=== PATIENT | male | born 1965 | race Caucasian/White ===

== ENCOUNTER 2024-04-11 20:02 | Inpatient (IN) | payer BC ==
[~2024-04-11] VITALS: Ht 162.6 cm; Wt 85.8 kg
[2024-04-11 20:06] VITALS: BP_SYST 129; PULSE 96; RESP 21; TEMP 97.3; O2SAT 98
[2024-04-11] MEDS: MAG-AL HYDROX/SIMETH 30 ML UDC PO ONE (20:49)
[2024-04-11 20:55] LABS: BASOPHILS # (AUTO) 0.1 K/uL (0.0-0.2); EOSINOPHILS # (AUTO) 0.1 K/uL (0.0-0.4); HEMOGLOBIN 13.8 g/dL (14.0-18.0); MEAN CORPUSCULAR HEMOGLOBIN 32 pg (27-31); MONOCYTES # (AUTO) 0.8 K/uL (0.0-1.0); RED CELL DISTRIBUTION WIDTH 13.4 % (9.0-15.0)
[2024-04-11 21:00] LABS: BASOPHILS % (AUTO) 1.2 % (0.0-2.0); EOSINOPHILS % (AUTO) 1.3 % (0.0-4.0); HEMATOCRIT 40.2 % (36-54); LYMPHOCYTES # (AUTO) 2.7 K/uL (1.0-5.5); LYMPHOCYTES % (AUTO) 26.3 % (20.5-51.5); MEAN CORPUSCULAR HGB CONC 34 % (32-36); MEAN CORPUSCULAR VOLUME 93 fL (79.0-98.0); MONOCYTES % (AUTO) 7.8 % (1.7-9.3); NEUTROPHILS # (AUTO) 6.4 K/uL (1.8-7.7); NEUTROPHILS % (AUTO) 63.4 % (40.0-70.0); PLATELET COUNT (AUTO) 177 K/uL (130-430); RED BLOOD CELL COUNT(AUTO) 4.34 MIL/uL (4.2-6.2); WHITE BLOOD COUNT (AUTO) 10.2 K/uL (4.8-10.8)
[2024-04-11 21:01] LABS: ALANINE AMINOTRANSFERASE 153 U/L (12-78); ALBUMIN 3.6 g/dL (3.4-4.8); ANION GAP 10 (5-15); ASPARTATE AMINOTRANSFERASE 119 U/L (10-37); CALCIUM 8.5 mg/dL (8.4-11.0); CARBON DIOXIDE 25 mmol/L (23-29); CHLORIDE 107 mmol/L (98-107); CREATININE 1.06 mg/dL (0.55-1.30); GFR AFRICAN AMERICAN 92 mL/min (>90); GFR NON AFRICAN-AMERICAN 76 mL/min (>90); GLUCOSE 94 mg/dL (74-106); POTASSIUM 4.1 mmol/L (3.5-5.1); SODIUM SERUM 142 mmol/L (136-145); TOTAL BILIRUBIN 0.9 mg/dL (0.0-1.0); TOTAL PROTEIN, SERUM 6.7 g/dL (6.4-8.3); UREA NITROGEN, BLOOD 22 mg/dL (8-21)
[2024-04-11 21:15] LABS: BILIRUBIN,DIRECT 0.2 mg/dL (0.0-0.3); LIPASE 38 U/L (16-77)
[2024-04-11] MEDS: ASPIRIN 81 MG TAB.CHEW PO ONE (21:28)
[2024-04-11] MEDS ORDERED: FUROSEMIDE 40 MG/4 ML VIAL IVP ONE (21:30)
[2024-04-11] MEDS: FUROSEMIDE 20 MG/2 ML VIAL IVP ONE (21:31)
[2024-04-11] MEDS ORDERED: SPIR25TA6 PO (23:04)
[2024-04-11] MEDS ORDERED: FURO40TA5 PO (23:04)
[2024-04-11] MEDS ORDERED: CARV12.548 PO (23:04)
[2024-04-11] MEDS ORDERED: ASPI-1393 PO (23:04)
[2024-04-11 23:45] LABS: BARBITURATE, URINE NEGATIVE (NEG <=200); BENZODIAZEPINE, URINE NEGATIVE (NEG <=150); METHAMPHETAMINES SCREEN,URINE NEGATIVE (NEG <=500); URINE AMPHETAMINE NEGATIVE (NEG <=500); URINE METHADONE NEGATIVE (NEG <=200)
[2024-04-11 23:46] LABS: CANNABINOID, URINE NEGATIVE (NEG <=50); COCAINE, URINE NEGATIVE (NEG <=150); OPIATE, URINE NEGATIVE (NEG <=100); PHENCYCLIDINE SCREEN,URINE NEGATIVE (NEG <=25); UR TRICYCLIC ANTIDEPRESSANTS NEGATIVE (NEG <=300); URINE OXYCODONE SCREEN NEGATIVE (NEG <=100)
[2024-04-12 08:55] VITALS: BP_SYST 107; PULSE 86; RESP 16; TEMP 96.8; O2SAT 98
[2024-04-12] MEDS ORDERED: ONDANSETRON HCL 4 MG/2 ML VIAL IVP PRN (10:30)
[2024-04-12] MEDS ORDERED: LORazepam 2 MG/ML VIAL IVP PRN (10:30)
[2024-04-12] MEDS ORDERED: ACETAMINOPHEN 325 MG TABLET PO PRN (10:30)
[2024-04-12] MEDS ORDERED: HYDROcodone/ACETAMIN 5-325 MG TAB (NORCO/ VICODIN) PO PRN ×2 (10:30→19:45)
[2024-04-12] MEDS ORDERED: HYDROcodone/ACETAMIN 10-325 MG TAB PO PRN (10:30)
[2024-04-12] MEDS ORDERED: NALOXONE HCL 0.4 MG/ML AMP (NARCAN) IVP PRN ×4 (10:30→19:45)
[2024-04-12 11:10] LABS: BASOPHILS # (AUTO) 0.1 K/uL (0.0-0.2); BASOPHILS % (AUTO) 1.3 % (0.0-2.0); EOSINOPHILS # (AUTO) 0.1 K/uL (0.0-0.4); EOSINOPHILS % (AUTO) 1.3 % (0.0-4.0); HEMATOCRIT 39.9 % (36-54); HEMOGLOBIN 13.5 g/dL (14.0-18.0); LYMPHOCYTES # (AUTO) 2.4 K/uL (1.0-5.5); LYMPHOCYTES % (AUTO) 29.7 % (20.5-51.5); MEAN CORPUSCULAR HEMOGLOBIN 31 pg (27-31); MEAN CORPUSCULAR HGB CONC 34 % (32-36); MEAN CORPUSCULAR VOLUME 92 fL (79.0-98.0); MONOCYTES # (AUTO) 0.7 K/uL (0.0-1.0); MONOCYTES % (AUTO) 8.8 % (1.7-9.3); NEUTROPHILS # (AUTO) 4.7 K/uL (1.8-7.7); NEUTROPHILS % (AUTO) 58.9 % (40.0-70.0); PLATELET COUNT (AUTO) 169 K/uL (130-430); RED BLOOD CELL COUNT(AUTO) 4.32 MIL/uL (4.2-6.2); RED CELL DISTRIBUTION WIDTH 13.7 % (9.0-15.0); WHITE BLOOD COUNT (AUTO) 7.9 K/uL (4.8-10.8)
[2024-04-12 11:20] LABS: ALBUMIN 3.4 g/dL (3.4-4.8); CALCIUM 8.4 mg/dL (8.4-11.0); CREATININE 0.95 mg/dL (0.55-1.30); POTASSIUM 3.8 mmol/L (3.5-5.1); TOTAL BILIRUBIN 1.5 mg/dL (0.0-1.0); TOTAL PROTEIN, SERUM 6.5 g/dL (6.4-8.3)
[2024-04-12 11:53] VITALS: O2SAT 98
[2024-04-12] MEDS: ASPIRIN 81 MG TABLET(ECOTRIN) PO ONE (15:59)
[2024-04-12] MEDS: SPIRONOLACTONE 25 MG TABLET (ALDACTONE) PO ONE (15:59)
[2024-04-12] MEDS: NORMAL SALINE 5 ML DISP.SYRIN IVF SCH (16:00)
[2024-04-12 20:00] VITALS: BP_SYST 135; PULSE 92; RESP 20; TEMP 98.5; O2SAT 95
[2024-04-12] MEDS: HYDROcodone/ACETAMIN 10-325 MG TAB PO PRN (21:08)
[2024-04-12] MEDS: CARVEDILOL 12.5 MG TABLET (COREG) PO SCH (21:12)
[2024-04-13 01:00] VITALS: BP_SYST 139; PULSE 88; RESP 20; TEMP 96.5; O2SAT 95
[2024-04-13 06:49] LABS: BASOPHILS # (AUTO) 0.1 K/uL (0.0-0.2); BASOPHILS % (AUTO) 1.3 % (0.0-2.0); EOSINOPHILS # (AUTO) 0.1 K/uL (0.0-0.4); EOSINOPHILS % (AUTO) 1.8 % (0.0-4.0); HEMATOCRIT 41.3 % (36-54); HEMOGLOBIN 13.7 g/dL (14.0-18.0); LYMPHOCYTES # (AUTO) 2.3 K/uL (1.0-5.5); LYMPHOCYTES % (AUTO) 33.5 % (20.5-51.5); MEAN CORPUSCULAR HEMOGLOBIN 31 pg (27-31); MEAN CORPUSCULAR HGB CONC 33 % (32-36); MEAN CORPUSCULAR VOLUME 94 fL (79.0-98.0); MONOCYTES # (AUTO) 0.5 K/uL (0.0-1.0); MONOCYTES % (AUTO) 7.3 % (1.7-9.3); NEUTROPHILS # (AUTO) 3.9 K/uL (1.8-7.7); NEUTROPHILS % (AUTO) 56.1 % (40.0-70.0); PLATELET COUNT (AUTO) 176 K/uL (130-430); RED BLOOD CELL COUNT(AUTO) 4.41 MIL/uL (4.2-6.2); RED CELL DISTRIBUTION WIDTH 13.4 % (9.0-15.0); WHITE BLOOD COUNT (AUTO) 6.9 K/uL (4.8-10.8)
[2024-04-13 07:29] LABS: ALBUMIN 3.4 g/dL (3.4-4.8); CALCIUM 8.6 mg/dL (8.4-11.0); POTASSIUM 4.4 mmol/L (3.5-5.1); TOTAL BILIRUBIN 1.7 mg/dL (0.0-1.0); TOTAL PROTEIN, SERUM 6.5 g/dL (6.4-8.3)
[2024-04-13 07:32] LABS: TOTAL IRON BIND. CAPACITY 341 ug/dL (250-450)
[2024-04-13 09:06] VITALS: BP_SYST 109; PULSE 91; RESP 12; TEMP 96; O2SAT 98
[2024-04-13] MEDS: FUROSEMIDE 40 MG TABLET PO ONE (13:29)
[2024-04-13] MEDS: ASPIRIN 81 MG TABLET(ECOTRIN) PO SCH (13:29)
[2024-04-13] MEDS: SPIRONOLACTONE 25 MG TABLET (ALDACTONE) PO SCH (13:31)
[2024-04-13] MEDS: FUROSEMIDE 40 MG TABLET PO SCH (13:33)
[2024-04-13 17:29] VITALS: BP_SYST 110; PULSE 74; RESP 16; TEMP 98; O2SAT 98
[2024-04-15 01:06] LABS: GAMMA GLUTAMYL TRANSFERASE 129 IU/L (0-65)
[2024-04-15 02:06] LABS: ALPHA-1-ANTITRYPSIN, S 117 mg/dL (101-187); HEPATITIS A AB, IgM Negative (Negative); HEPATITIS B CORE AB, IgM Negative (Negative); HEPATITIS B SURFACE AG Negative (Negative); HEPATITIS C VIRUS AB Non Reactive (Non Reactive)
[2024-04-15 14:07] LABS: ANTI-SMOOTH MUSCLE AB 6 Units (0-19)
[2024-04-16 13:07] LABS: ATYPICAL pANCA <1:20 titer (Neg:<1:20); CYTOPLASMIC (C-ANCA) <1:20 titer (Neg:<1:20); CYTOPLASMIC (P-ANCA) <1:20 titer (Neg:<1:20)
== END 2024-04-13 18:20 | disposition home or self-care (01) | DRG 194 ==
LOC: SED 20:02 → STU 22:51
PROVIDERS: ADMIT Preventive Medicine Preventive Medicine/Occupational Environmental Medicine; ATTEND Preventive Medicine Preventive Medicine/Occupational Environmental Medicine
DX: I50.41 Acute combined systolic (congestive) and diastolic (congestive) heart failure (principal); I24.89 Other forms of acute ischemic heart disease; I42.9 Cardiomyopathy, unspecified; R10.13 Epigastric pain; K76.1 Chronic passive congestion of liver; I25.10 Atherosclerotic heart disease of native coronary artery without angina pectoris; K82.4 Cholesterolosis of gallbladder; Z95.810 Presence of automatic (implantable) cardiac defibrillator; Z79.899 Other long term (current) drug therapy; Z79.82 Long term (current) use of aspirin
CPT/HCPCS: 36415; 71045; 76700; 80048; 80053; 80074; 80076; 80307; 82103; 82607; 83516; 83540; 83550; 83690; 83880; 84484; 85025; 86256; 93005; 93306; 99285; G0378; J1940

== ENCOUNTER 2024-05-08 13:28 | Inpatient (IN) | payer BC ==
[~2024-05-08] VITALS: Ht 165.1 cm; Wt 84.4 kg
[~2024-05-08 13:28] MED LIST: ASPI-1393 PO; CARV12.548 PO; FURO40TA5 PO; SPIR25TA6 PO
[2024-05-08 13:49] VITALS: BP_SYST 95; PULSE 98; RESP 18; TEMP 98.1; O2SAT 98
--- NOTE | 2024-05-08 13:58 | NUR ---
Patient triaged and placed in waiting room. VSS and patient appears in no acute distress at this time. Accompanied by SELF, awaiting available bed, and MD notified of need for MSE.
--- NOTE | 2024-05-08 14:40 | NUR ---
CHENCHO Bush at bedside examining patient.
--- NOTE | 2024-05-08 14:45 | NUR ---
PT BIBS, PT C/C UPPER 10/10 ABD PAIN x1 MONTH, NAUSEA, DENIES VOMIT AND DIARRHEA. ALSO REPORTS COUGH X1 MONTH. PMH DEFIBRILAOR, CHF, HTN. NKA. VSS.
--- NOTE | 2024-05-08 14:55 | NUR ---
Placed in room 03 . Placed on electronic device monitor, blood pressure machine and pulse oximeter. To gown for exam. Side rails up. Report given to SUE PLATA.
[2024-05-08 15:01] LABS: BILIRUBIN,URINE NEGATIVE (NEGATIVE); BLOOD, URINE NEGATIVE (NEGATIVE); CLARITY/URINE CLEAR (CLEAR); COLOR,URINE YELLOW (YELLOW); GLUCOSE,URINE NEGATIVE (NEGATIVE); KETONES,URINE NEGATIVE (NEGATIVE); LEUKOCYTE ESTERASE ,URINE NEGATIVE (NEGATIVE); NITRITE, URINE NEGATIVE (NEGATIVE); PROTEIN URINE 1+ (NEGATIVE)
[2024-05-08 15:12] LABS: BACTERIA,URINE None Seen /HPF (None Seen); HYALINE CASTS, URINE 0-2 /LPF (None Seen); RBC,URINE 0-3 /HPF (0-3); WBC,URINE NONE SEEN /HPF (0-3)
[2024-05-08 15:26] LABS: BASOPHILS # (AUTO) 0.1 K/uL (0.0-0.2); BASOPHILS % (AUTO) 0.9 % (0.0-2.0); EOSINOPHILS % (AUTO) 0.5 % (0.0-4.0); HEMATOCRIT 41.6 % (36-54); HEMOGLOBIN 14.2 g/dL (14.0-18.0); LYMPHOCYTES # (AUTO) 2.2 K/uL (1.0-5.5); LYMPHOCYTES % (AUTO) 24.7 % (20.5-51.5); MEAN CORPUSCULAR HEMOGLOBIN 31 pg (27-31); MEAN CORPUSCULAR HGB CONC 34 % (32-36); MEAN CORPUSCULAR VOLUME 92 fL (79.0-98.0); MONOCYTES # (AUTO) 0.7 K/uL (0.0-1.0); MONOCYTES % (AUTO) 7.6 % (1.7-9.3); NEUTROPHILS # (AUTO) 5.9 K/uL (1.8-7.7); NEUTROPHILS % (AUTO) 66.3 % (40.0-70.0); PLATELET COUNT (AUTO) 145 K/uL (130-430); RED BLOOD CELL COUNT(AUTO) 4.53 MIL/uL (4.2-6.2); RED CELL DISTRIBUTION WIDTH 13.3 % (9.0-15.0); WHITE BLOOD COUNT (AUTO) 8.9 K/uL (4.8-10.8)
[2024-05-08] MEDS: DICYCLOMINE HCL 10 MG/5 ML SOLUTION PO ONE (15:40)
[2024-05-08] MEDS: MAG-AL HYDROX/SIMETH 30 ML UDC PO ONE (15:41)
[2024-05-08] MEDS: PANTOPRAZOLE SODIUM 40 MG TAB PO ONE (15:41)
[2024-05-08 15:51] LABS: ALBUMIN 3.4 g/dL (3.4-4.8); BILIRUBIN,DIRECT 0.2 mg/dL (0.0-0.3); CALCIUM 8.7 mg/dL (8.4-11.0); CREATININE 1.14 mg/dL (0.55-1.30); POTASSIUM 5.1 mmol/L (3.5-5.1); TOTAL BILIRUBIN 1.3 mg/dL (0.0-1.0); TOTAL PROTEIN, SERUM 6.9 g/dL (6.4-8.3)
--- NOTE | 2024-05-08 17:23 | NUR ---
ASSOCIATE TEACHER AT BEDSIDE
[2024-05-08] MEDS: ENOXAPARIN SODIUM 80 MG/0.8 ML SYRINGE SUBCUT ONE (17:58)
[2024-05-08] MEDS: ASPIRIN 81 MG TABLET(ECOTRIN) PO ONE (17:58)
--- NOTE | 2024-05-08 17:59 | NUR ---
# 22 gauge angiocath placed to R hand. Use of asceptic technique. Opsite placed over site. Blood return noted. Blood for lab drawn from site. Flushed with 10 cc of normal saline. No evidence of infiltration noted. Patient tolerated well.
[2024-05-08] MEDS: ONDANSETRON HCL 4 MG/2 ML VIAL IVP ONE (18:15)
[2024-05-08] MEDS: MORPHINE 4 MG INJ. 4 MG/ML VIAL IVP ONE (18:16)
--- NOTE | 2024-05-08 19:10 | NUR ---
Received report from ALESHIA Partida. Received patient on bed #2, with angio cath #22 on left hand, patent and intact with no IVF infusing at this time. Patient is AAOX4, respiratory even and unlabored, denies any pain or discomfort at this time.
--- NOTE | 2024-05-08 20:23 | NUR ---
Note undone in ED - 05/08/24 at 2055 by [email or web address] Admit bed requested Patient will be admitted to care of Dr. KIMBROUGH. Admitted to TELE unit. Diagnosis ELEVATED TROPONIN, ABD PAIN, CYSTITIS Inpatient (Yes or No) YES Observation (Yes or No) NO Orientation concerns or request close to nursing station (Yes or No) NO Covid Status NA On vent or bipap NO Isolation requirements NO Needs a sitter NO From Home (Yes or if No enter name of facility) HOME Requires Dialysis (Yes or No) NO Med Rec Completed (Yes of No) YES
[2024-05-08] MEDS: D5/0.45 NS 1,000 ML IV ONE (20:49)
--- NOTE | 2024-05-08 20:55 | NUR ---
Admit bed requested Patient will be admitted to care of Dr. KIMBROUGH. Admitted to TELE unit. Diagnosis ELEVATED TROPONIN, ABD PAIN, CHOLECYSTITIS Inpatient (Yes or No) YES Observation (Yes or No) NO Orientation concerns or request close to nursing station (Yes or No) NO Covid Status NA On vent or bipap NO Isolation requirements NO Needs a sitter NO From Home (Yes or if No enter name of facility) HOME Requires Dialysis (Yes or No) NO Med Rec Completed (Yes of No) YES
--- NOTE | 2024-05-08 21:30 | NUR ---
Patient will be admitted to care of Dr. Smiley. Admitted to Tele unit. Will go to room 118A. Belongings list completed. Complete and up to date summary report printed. SBAR report to be given at bedside with opportunity for questions.
--- NOTE | 2024-05-08 21:40 | NUR ---
ADMISSION NOTES RECEIVED REPORT FROM ER NURSE MINNA, PATIENT ARRIVED VIA JUSTINE HERNANDEZ. PT CAME WITH COMPLAINTS OF EPIGASTRIC PAIN ON AND OFF FOR A MONTH. PT AMBULATORY AND ON TELEMETRY. EDUCATED WITH THE CALL LIGHT, AND ROOM. ON IVF INFUSING ORDERED AT R HAND, PATENT AND INTACT. BED LOCKED AND LOWEST POSITION.
[2024-05-08 21:53] VITALS: BP_SYST 124; PULSE 72; RESP 18; TEMP 97.9; O2SAT 97
--- NOTE | 2024-05-09 00:07 | NUR ---
PT RESTING IN BED, BREATHING EVEN AND UNLABORED. VITALS TAKEN AND DOCUMENTED. PT NOT IN DISTRESS. INSTRUCTED PATIENT ON NPO FOR POSSIBLE SURGERY. CALL LIGHT WITHIN REACH.
[2024-05-09 00:16] VITALS: BP_SYST 129; PULSE 79; RESP 19; TEMP 98.2
--- NOTE | 2024-05-09 02:28 | NUR ---
RIGHT HAND IV INFILTRATED, IV LINE PULLED OUT. RE INSERTED NEW IV ACCESS G. 22 AT RFA. BENIGN AND PATENT.
--- NOTE | 2024-05-09 04:50 | NUR ---
CONSULTATION PAGED/CALLED Reason for Consultation: CARDIAC CLEARANCE Person Who was Notified: DR LUIS E Mcmullen VIA TEXT Consulting Physician: DR LUIS E Mcmullen Animal Geneticist Specialty: CARDIOLOGY Ordering Physician: DR LUIS E Hernandez
--- NOTE | 2024-05-09 06:32 | NUR ---
CLOSING NOTES PT AWAKE. BREATHING EVEN AND UNLABORED.NOT IN DISTRESS. PT ON NPO FOR HIDA SCAN AND FOR SURGERY. AMBULATORY. CALL LIGHT WITHIN REACH. A/OX4.BED LOCKED IN LOWEST POSITION. ALL NEEDS MET THROUGHOUT SHIFT. WILL ENDORSE TO MORNING NURSE FOR CONTINUITY OF CARE.
[2024-05-09 08:00] VITALS: BP_SYST 117; PULSE 85; RESP 18; TEMP 96; O2SAT 100; O2SAT 99
--- NOTE | 2024-05-09 08:00 | NUR ---
opening pt lying in bed, no distress noted, resperations even unlabored, pt educated elevator constructor supervisor light system and fall precautions, iv site intact, call light with in reach.
--- NOTE | 2024-05-09 10:00 | NUR ---
ACTIVITY PT AMBULATING IN ROOM,GAIT STEADY, MINIMAL ASSIT NEEDED, NO SOB NO C/O DISTRESS
[2024-05-09] MEDS ORDERED: MORPHINE 4 MG INJ. 4 MG/ML VIAL IVP PRN (10:30)
[2024-05-09] MEDS: D5/0.45 NS 1,000 ML IV SCH (10:30)
[2024-05-09] MEDS ORDERED: LORazepam 2 MG/ML VIAL IVP PRN (10:30)
[2024-05-09] MEDS ORDERED: NALOXONE HCL 0.4 MG/ML AMP (NARCAN) IVP PRN (10:30)
[2024-05-09] MEDS ORDERED: ONDANSETRON HCL 4 MG/2 ML VIAL IVP PRN (10:30)
[2024-05-09 10:37] LABS: BASOPHILS % (AUTO) 0.7 % (0.0-2.0); EOSINOPHILS # (AUTO) 0.1 K/uL (0.0-0.4); EOSINOPHILS % (AUTO) 1.2 % (0.0-4.0); HEMATOCRIT 43.6 % (36-54); HEMOGLOBIN 14.7 g/dL (14.0-18.0); LYMPHOCYTES # (AUTO) 2.5 K/uL (1.0-5.5); MEAN CORPUSCULAR HEMOGLOBIN 31 pg (27-31); MEAN CORPUSCULAR HGB CONC 34 % (32-36); MEAN CORPUSCULAR VOLUME 93 fL (79.0-98.0); MONOCYTES # (AUTO) 0.5 K/uL (0.0-1.0); NEUTROPHILS # (AUTO) 3.4 K/uL (1.8-7.7); NEUTROPHILS % (AUTO) 52.1 % (40.0-70.0); PLATELET COUNT (AUTO) 153 K/uL (130-430); RED CELL DISTRIBUTION WIDTH 13.5 % (9.0-15.0); WHITE BLOOD COUNT (AUTO) 6.5 K/uL (4.8-10.8)
[2024-05-09 10:43] LABS: ALBUMIN 3.4 g/dL (3.4-4.8); CALCIUM 8.4 mg/dL (8.4-11.0); CREATININE 1.18 mg/dL (0.55-1.30); POTASSIUM 4.4 mmol/L (3.5-5.1); TOTAL BILIRUBIN 1.3 mg/dL (0.0-1.0); TOTAL PROTEIN, SERUM 6.9 g/dL (6.4-8.3)
[2024-05-09 12:34] VITALS: BP_SYST 107; PULSE 87; RESP 18; TEMP 97.7; O2SAT 97
--- NOTE | 2024-05-09 14:40 | NUR ---
PT TAKEN VIA WHEELCHAIR FOR HIDA SCAN
--- NOTE | 2024-05-09 15:30 | NUR ---
PT RETURNED FROM HIDA SCAN, NO DISTRESS, PT RETURNED TO BED, O2 SAT 98% ON RA BP 128/72
[2024-05-09 18:28] VITALS: BP_SYST 125; PULSE 87; RESP 19; TEMP 98.4; O2SAT 98
--- NOTE | 2024-05-09 19:01 | NUR ---
CLOSING PT SITTING UP IN BED NO C/9O DISCOMFORT, IV SITE INTACT, CARE ENDORSED TO SUCTION WORKER, BED IN LOWEST POSITION, CALL LIGHT WITH IN REACH.
--- NOTE | 2024-05-09 19:30 | NUR ---
PICKED UP CALL FROM DR. DEJESUS REGARDING LAP CHOLI SURGERY. PT HAD HIDA SCAN TODAY RESULTS WERE RELAYED TO DR. DEJESUS. DR WOULD LIKE PT DISCHARGED AND FOLLOW UP WITH HIM AT HIS OFFICE ON SUNDAY. PT STATES HE DOES NOT WANT TO BE DISCHARGED HE FEELS HE WOULD END UP IN AN EMERGENCY SITUATION, STATES OCCASIONALLY HIS PAIN INCREASES TO AN 8/10. THIS WAS ENDORSED TO OIL PIPELINE DISPATCHER BRANDIE. WHO WILL FOLLOW UP WITH DR. DEJESUS AND DR. KIMBROUGH.
[2024-05-09 20:00] VITALS: BP_SYST 112; PULSE 87; RESP 18; TEMP 97.9; O2SAT 98
[2024-05-09] MEDS: MORPHINE 2 MG/ML INJ. SYRINGE IVP PRN (20:35)
--- NOTE | 2024-05-09 21:40 | NUR ---
OPENING NOTE PATIENT RESTING IN BED, AOX4, UNLABORED BREATHING, PAIN LEVEL IS 6/10. RECEIVED A REPORT FROM DAY NURSE REGARDING DR. DEJESUS'S PLAN TO DISCHARGE THE PATIENT WITH A FOLLOW-UP ON SUNDAY. PATIENT REFUSES DISCHARGE DUE TO PAIN MANAGEMENT CONCERNS. PAGED DR. KIMBROUGH AND REPORTED IT. DR. KIMBROUGH ORDERED GI CONSULT FOR PATIENT'S DIET FROM DR. CHIN. Addendum: 05/09/24 at 2211 by Alyson Stewart RN WRONG OPENING NOTE TIME. CORRECTION: 05/09/241939
--- NOTE | 2024-05-09 23:02 | NUR ---
REPORTED TROPONIN LEVEL TO DR. KIMBROUGH Y, 202 FROM 207 ON 05/[address] KIMBROUGH STATES IT IS OK. Addendum: 05/09/24 at 2310 by Alyson Stewart RN LELE, CHARGE NURSE, RECEIVED RESULT FROM LAB. SHE CONVEYED THE RESULT TO ME.
[2024-05-10] VITALS: BP_SYST 113; PULSE 85; RESP 18; TEMP 97.7; O2SAT 98
--- NOTE | 2024-05-10 05:47 | NUR ---
CONSULTATION PAGED/CALLED Reason for Consultation: OR FOLLOW UP ABD PAIN Person Who was Notified: MELISSA Consulting Physician: ZULLY METEOROLOGY TEACHER Community Engagement Specialist Specialty: GASTROENTEROLOGY Ordering Physician: Mary KIMBROUGH
[2024-05-10 06:34] LABS: BASOPHILS % (AUTO) 0.8 % (0.0-2.0); EOSINOPHILS # (AUTO) 0.1 K/uL (0.0-0.4); EOSINOPHILS % (AUTO) 1.8 % (0.0-4.0); HEMATOCRIT 41.8 % (36-54); HEMOGLOBIN 13.8 g/dL (14.0-18.0); LYMPHOCYTES # (AUTO) 2.1 K/uL (1.0-5.5); LYMPHOCYTES % (AUTO) 35.5 % (20.5-51.5); MEAN CORPUSCULAR HEMOGLOBIN 31 pg (27-31); MEAN CORPUSCULAR HGB CONC 33 % (32-36); MEAN CORPUSCULAR VOLUME 93 fL (79.0-98.0); MONOCYTES # (AUTO) 0.5 K/uL (0.0-1.0); MONOCYTES % (AUTO) 8.9 % (1.7-9.3); NEUTROPHILS # (AUTO) 3.1 K/uL (1.8-7.7); PLATELET COUNT (AUTO) 174 K/uL (130-430); RED BLOOD CELL COUNT(AUTO) 4.48 MIL/uL (4.2-6.2); RED CELL DISTRIBUTION WIDTH 13.3 % (9.0-15.0); WHITE BLOOD COUNT (AUTO) 5.9 K/uL (4.8-10.8)
--- NOTE | 2024-05-10 06:44 | NUR ---
CLOSING NOTE PATIENT RESTING IN BED, NO PAIN OR DISCOMFORT NOTED. AOX4, UNLABORED BREATHING, ALL NEEDS MET THROUGHOUT THE CURRICULUM ASSISTANT PRINCIPAL. BED ALARM ON, BED IN LOWEST POSITION. CALL LIGHT WITHIN REACH.
[2024-05-10 06:52] LABS: CALCIUM 8.4 mg/dL (8.4-11.0); CREATININE 1.13 mg/dL (0.55-1.30); POTASSIUM 4.3 mmol/L (3.5-5.1)
[2024-05-10 07:44] VITALS: BP_SYST 105; PULSE 85; RESP 18; TEMP 97.9; O2SAT 99
[2024-05-10 08:00] VITALS: O2SAT 99
--- NOTE | 2024-05-10 11:10 | NUR ---
Note Pt was checked on q1' and PRN all shift for needs and care. Pt is NPO at this time. Pt denies any needs and watching television on his laptop. Pt's IV in RFA intact and patent infusing IVF's well. Abdominal pain tolerable all shift. Call light within reach. Pt ambulates in room and to restroom by self with steady gait.
[2024-05-10 12:18] VITALS: BP_SYST 102; PULSE 96; RESP 17; TEMP 98.5; O2SAT 99
[2024-05-10 16:17] VITALS: BP_SYST 108; PULSE 95; RESP 16; TEMP 98.4; O2SAT 99
--- NOTE | 2024-05-10 18:05 | NUR ---
Closing Note Pt ambulated in hallways with IV pole with steady gait this afternoon. Pt was seen and assessed by Dr Campoverde (GI) at 1645) - MD stated pt may be started on FULL LIQUIDS diet at this time. Pt was very hungry. Pt denies any needs all shift. Abdominal pain/discomfort was tolerable all shift. No needs noted. Pt eating his Full Liquids dinner, sitting on side of bed. Call light within reach.
--- NOTE | 2024-05-10 19:30 | NUR ---
OPENING NOTES RECEIVED PT IN BED, AWAKE AND VERBAL. SKIN WARM AND DRY. DENIES ANY PAIN OR DISCOMFORT AT THIS TIME. RESPIRATION EVEN, NO SHORTNESS OF BREATH NOTED. VITAL SIGNS TAKEN, BED IN LOWEST POSITION, CALL LIGHT WITHIN REACH.
[2024-05-10 20:00] VITALS: BP_SYST 109; PULSE 94; RESP 18; TEMP 97.9; O2SAT 98
[2024-05-11 00:27] VITALS: BP_SYST 111; PULSE 88; RESP 18; TEMP 97.7; O2SAT 97
--- NOTE | 2024-05-11 07:09 | NUR ---
closing notes pt stable, no complain of pain all shift. slept through the night. bed in lowest position, call light and personal belongings within reach
--- NOTE | 2024-05-11 07:40 | NUR ---
OPENING NOTES: RECEIVED BEDSIDE SBAR FROM PM SHIFT NURSE, NO S/S OF ANY DISTRESS NON LABOR BREATHING, BED AT LOW AND LOCKED POSITION , ALL FALL AND SAFETY RISKS IN PLACE, CALL LIGHT IN REACH, WILL GIVE MEDS PER ORDERS.
[2024-05-11 08:00] VITALS: O2SAT 99
[2024-05-11 12:17] VITALS: BP_SYST 109; PULSE 75; RESP 18; TEMP 97.6; O2SAT 97
[2024-05-11] MEDS ORDERED: HYDR-3917 PO (12:28)
[2024-05-11 13:29] VITALS: BP_SYST 109; PULSE 75; RESP 18; TEMP 97.6; O2SAT 97
--- NOTE | 2024-05-11 15:15 | NUR ---
DISCHARGE: Called oyster cultivator [place] ([place] [id number]) to explain discharge instruction in Irish. All question answered. No missing belongings. All Future appointment is discussed and verified that its in the discharge paper. IV removed. ID band removed. Help transfer from w/c to private transportation. Picked up by friend Kevin via private car. Patient is very thankful for the help provided. All needs met Addendum: 05/11/24 at 1708 by Aden Price RN ADDENDUM: Patient requested to changed prefer [facility] re: [facility] she said they cannot transfer the prescription and also dont have it on stuck. Left message to .
--- NOTE | 2024-05-11 17:08 | NUR ---
Received a phone call from Dr. Smiley made aware re: [facility] prescription. He will change the pharmacy to [facility] tomorrow. Pharmacy is already close for the day.
--- NOTE | 2024-05-11 17:13 | NUR ---
Dietitian Recommendations * Continue Full Liquid diet as tolerated * Advance to low fat diet if/when medically able [facility] Please refer to Nutritional Assessment for further details. Addendum: 05/11/24 at [address] Amended: Links added.
== END 2024-05-11 15:15 | disposition home or self-care (01) ==
LOC: SED 13:28 → STU 20:20
PROVIDERS: ADMIT Preventive Medicine Preventive Medicine/Occupational Environmental Medicine; ATTEND Preventive Medicine Preventive Medicine/Occupational Environmental Medicine
DX: K80.00 Calculus of gallbladder with acute cholecystitis without obstruction (principal); I24.89 Other forms of acute ischemic heart disease; I50.9 Heart failure, unspecified; I11.0 Hypertensive heart disease with heart failure; I25.10 Atherosclerotic heart disease of native coronary artery without angina pectoris; Z79.899 Other long term (current) drug therapy; Z88.8 Allergy status to other drugs, medicaments and biological substances; Z95.810 Presence of automatic (implantable) cardiac defibrillator
CPT/HCPCS: 36415; 71045; 76705; 78226; 80048; 80053; 80076; 81000; 81001; 81015; 83690; 83880; 84484; 85025; 85730; 86886; 86900; 86901; 93005; 99291; A9537; G0378; J1650; J2270; J2405